=== PATIENT | male | born 1985 | race American Indian/Alaskan Native ===

== ENCOUNTER 2016-12-03 13:27 | Emergency (ER) | payer OTHER ==
[2016-12-03] MEDS ORDERED: BENADRYL IV ONE (14:25)
[2016-12-03] MEDS ORDERED: PEPCID IV ONE (14:25)
[2016-12-03] MEDS ORDERED: NACL 0.9% 1000 ML 1,000 ML IV ONE (14:25)
--- NOTE | 2016-12-03 14:27 | Emergency Department Report ---
Chief Complaint: Skin Rash Stated Complaint: POSS INSECT BITE ON BACK Time Seen by Provider: 12/03/16 14:24 - HPI History of Present Illness: Rash onset 1 hr [employer] PT states he is not sure why he is breaking out it rash - ROS Review of Systems: + rash + itching - Exam Physical Exam: urticaria noted to extremities and back MSE screening note: Focused history and physical exam performed. Due to findings the following was ordered: meds ED Disposition for MSE Condition: Stable
--- NOTE | 2016-12-03 15:55 | Emergency Department Report ---
ED Rash HPI - HPI Chief Complaint: Allergic Reaction Stated Complaint: POSS INSECT BITE ON BACK Time Seen by Provider: 12/03/16 14:24 Duration: Today Location: Back, Upper Extremities Suspected Cause: Insect Rash Symptoms: Yes Itching, No Facial Swelling, No Tongue/Oral Swelling, No Breathing Difficulties, No Choking Sensation, No Wheezing/Dyspnea, No Peeling, No Blistering, No Fever, No Lightheaded, No Malaise, No Myalgias Severity: moderate Other History: Patient is a 31-year-old male who presents due to hives 1.5 hours. Patient states that he was stung by an insect side. Patient states that he felt the sting on his left upper back. Patient denies any shortness of breath or lip swelling. Patient denies any fever or chills. Patient denies any dizziness or lightheadedness. Patient denies any chest pain or shortness of breath. ED Review of Systems ROS: Stated complaint: POSS INSECT BITE ON BACK Other details as noted in HPI Comment: All other systems reviewed and negative Constitutional: no symptoms reported. denies: chills, diaphoresis, fever, malaise, weakness ENT: denies: throat pain Respiratory: denies: cough, orthopnea, shortness of breath, SOB with exertion, SOB at rest, stridor, wheezing Cardiovascular: denies: chest pain, palpitations Musculoskeletal: denies: back pain Skin: rash Neurological: denies: headache, weakness, numbness, paresthesias, confusion ED Past Medical Hx - Past Medical History Previous Medical History?: No - Surgical History Past Surgical History?: No - Social History Smoking Status: Former Smoker Substance Use Type: Cocaine, Marijuana - Medications Home Medications: Home Medications Medication Instructions Recorded Confirmed Last Taken Type Prednisone [predniSONE 10 mg 10 mg PO .TAPER #1 tab.ds.pk 12/03/16 Unknown Rx (6-Day Pack, 21 Tabs)] diphenhydrAMINE [Benadryl CAP] 25 mg PO Q6HR PRN #20 capsule 12/03/16 Unknown Rx Rash Exam - Exam General: Vital signs noted. No distress. Alert and acting appropriately. HEENT: No Periorbital Edema, No Conjuctival Injection, No Chemosis, No Perioral Edema, No Tongue Edema, No Uvular Edema, No Compromised Airway, No Drooling Lungs: Yes Good Air Exchange, No Wheezes, No Ronchi, No Stridor, No Cough, No Labored Respirations, No Retractions, No Use of Accessory Muscles, No Other Abnormal Lung Sounds Heart: Yes Regular Skin: Yes Urticarial Rash, Yes Erythema, No Maculopapular Rash, No Morbilliform rash, No Bulla(e), No Excoriations, No Weeping, No Tenderness, No Edema, No Encrustations, No Other Other: Positive: Abdomen Normal, Neurologic Normal, Musculoskeletal Normal ED Course Vital Signs 12/03/16 14:24 Temperature 97.1 F L Pulse Rate 98 H Respiratory 16 Rate Blood Pressure 124/90 O2 Sat by Pulse 98 Oximetry ED Medical Decision Making - Medical Decision Making Patient was in no acute distress, patient had patent airway, patient was alert and oriented 3. Patient was given Benadryl, Pepcid and Solu-Medrol IV in the ER. Patient was reevaluated an hour later and patient's whelps were improved. there was decreased swelling. And stated he felt better and the itching was relieved. Patient will be discharge with prescription of prednisone tapering dose, and Benadryl. - Differential Diagnosis insect bite, allergic reaction, urticaria Critical care attestation.: If time is entered above; I have spent that time in minutes in the direct care of this critically ill patient, excluding procedure time. ED Disposition Clinical Impression: Allergic urticaria Insect bite Qualifiers: Encounter type: initial encounter Qualified Code(s): W57.XXXA - Bitten or stung by nonvenomous insect and other nonvenomous arthropods, initial encounter Allergic reaction Qualifiers: Encounter type: initial encounter Qualified Code(s): T78.40XA - Allergy, unspecified, initial encounter Disposition: - TO HOME OR SELFCARE Is pt being admited?: No Does the pt Need Aspirin: No Condition: Good Instructions: Urticaria (ED) Additional Instructions: Prednisone tapering dose as prescribed, take Benadryl 25 mg every 6 hours as needed for itching. Do not drive or use heavy machinery when taking Benadryl. And the ER for any shortness of breath, swelling or worsening rash. Prescriptions: diphenhydrAMINE [Benadryl CAP] 25 mg PO Q6HR PRN #20 capsule PRN Reason: Itching Prednisone [predniSONE 10 mg (6-Day Pack, 21 Tabs)] 10 mg PO .TAPER #1 tab.ds.pk Referrals: PRIMARY CARE, [Primary Care Provider] - 3-5 Days Time of Disposition: 16:00
[2016-12-03 16:11] VITALS: BP 120/73
== END 2016-12-03 16:25 | disposition home or self-care (01) ==
LOC: ED 13:27
DX: L23.9 Allergic contact dermatitis, unspecified cause (principal); F12.90 Cannabis use, unspecified, uncomplicated; F14.90 Cocaine use, unspecified, uncomplicated; Z87.891 Personal history of nicotine dependence; W57.XXXA Bitten or stung by nonvenomous insect and other nonvenomous arthropods, initial encounter; Y93.89 Activity, other specified; Y99.9 Unspecified external cause status; Y92.89 Other specified places as the place of occurrence of the external cause
CPT/HCPCS: 96374; 96375; 99282; J1200; J2930; J7030